=== PATIENT | female | born 1970 | race African-American/Black ===

== ENCOUNTER 2016-10-03 18:05 | Emergency (ER) | payer SELFPAY ==
[2016-10-03 18:13] VITALS: BP 173/97
--- NOTE | 2016-10-03 18:55 | ER Document Report ---
ED Skin Rash/Insect Bite/Abscs - General Chief Complaint: Rash Stated Complaint: POSSIBLE ALLERGIC REACTION Time seen by provider: 18:50 Mode of Arrival: Ambulatory Information source: Patient Notes: 45-year-old female presents to ED for complaint of rash that started yesterday. Much worse today itching to arms and face neck. She described in the arms or weeping. She denies any allergies or any known causes for her rash. She has not been exposed to anything that she knows of. She has no difficulty breathing no difficulty swallowing no difficulty talking. TRAVEL OUTSIDE OF THE [place] IN LAST 30 DAYS: No - HPI Patient complains to provider of: Skin rash/lesion Onset: Yesterday Onset/Duration: Sudden Quality of pain: No pain Severity: None Pain Level: Denies Skin Character: Rash Quality of rash: Itchy Identify cause: No Exacerbated by: Denies Relieved by: Denies Similar symptoms previously: No Recently seen / treated by doctor: No - Related Data Allergies/Adverse Reactions: No Known Allergies Allergy (Verified 10/03/16 18:06) Past Medical History - General Information source: Patient - Social History Smoking Status: Former Smoker Cigarette use (# per day): No Chew tobacco use (# tins/day): No Smoking Education Provided: No Frequency of alcohol use: None Drug Abuse: None 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: [employer] Family History: CAD, Hyperlipidemia, Hypertension, Malignancy Patient has suicidal ideation: No Patient has homicidal ideation: No - Past Medical History Cardiac Medical History: Reports: Hx Hypertension Pulmonary Medical History: Reports: None EENT Medical History: Reports: None Neurological Medical History: Reports: None Endocrine Medical History: Reports: None Renal/ Medical History: Reports: None Malignancy Medical History: Reports: None GI Medical History: Reports: None Musculoskeltal Medical History: Reports None Skin Medical History: Reports None Psychiatric Medical History: Reports: None Traumatic Medical History: Reports: None Infectious Medical History: Reports: None Past Surgical History: Reports: Hx Hysterectomy, Hx Tubal Ligation - Immunizations Immunizations up to date: Yes Hx Diphtheria, Pertussis, Tetanus Vaccination: Yes Review of Systems - Review of Systems Constitutional: No symptoms reported EENT: No symptoms reported Cardiovascular: No symptoms reported Respiratory: No symptoms reported Gastrointestinal: No symptoms reported Genitourinary: No symptoms reported Female Genitourinary: No symptoms reported Musculoskeletal: No symptoms reported Skin: Rash Hematologic/Lymphatic: No symptoms reported Neurological/Psychological: No symptoms reported -: Yes All other systems reviewed and negative Physical Exam - Vital signs Vitals: Temp Pulse Resp BP Pulse Ox 97.8 F 79 18 173/97 H 99 10/03/16 18:11 10/03/16 18:11 10/03/16 18:11 10/03/16 18:11 10/03/16 18:11 Interpretation: Normal - General General appearance: Appears well, Alert - HEENT Head: Normocephalic, Atraumatic Eyes: Normal Pupils: PERRL - Respiratory Respiratory status: No respiratory distress Chest status: Nontender Breath sounds: Normal Chest palpation: Normal - Cardiovascular Rhythm: Regular Heart sounds: Normal auscultation Murmur: No - Abdominal Inspection: Normal Distension: No distension Bowel sounds: Normal Tenderness: Nontender Organomegaly: No organomegaly - Back Back: Normal, Nontender - Extremities General upper extremity: Normal inspection, Nontender, Normal color, Normal ROM , Normal temperature General lower extremity: Normal inspection, Nontender, Normal color, Normal ROM , Normal temperature, Normal weight bearing. No: Tali's sign - Neurological Neuro grossly intact: Yes Cognition: Normal Orientation: AAOx4 [place] Coma Scale Eye Opening: Spontaneous [place] Coma Scale Verbal: Oriented Vanessa Coma Scale Motor: Obeys Commands [place] Coma Scale Total: 15 Speech: Normal Motor strength normal: LUE, RUE, LLE, RLE Sensory: Normal - Psychological Associated symptoms: Normal affect, Normal mood - Skin Skin Temperature: Warm Skin Moisture: Dry Skin Color: Normal Location of irregularity: Face, Extremities Character of irregularity: Maculopapular, Erythematous Irregularity with: Inflammation, Weeping Course - Re-evaluation Re-evalutation: 10/03/16 19:50 Patient treated with solu Medrol Benadryl and Pepcid IV for her severe eczema. She will be discharged home with prescription for prednisone and Pepcid as well as hydroxyzine. Patient will also be given sent home with a prescription for Keflex to take if she develops red streaks or other signs and symptoms of infection. Dr. Reid was consulted and his recommendation was Keflex to use as needed for signs of infection antihistamines and steroids and for patient to continue using her using cream, cool baths, and follow up with a packer inspector. - Vital Signs Vital signs: Temp Pulse Resp BP Pulse Ox 97.8 F 71 18 173/97 H 100 10/03/16 18:11 10/03/16 20:07 10/03/16 18:11 10/03/16 18:11 10/03/16 20:07 Discharge - Discharge Clinical Impression: Seborrheic eczema Condition: Stable Disposition: HOME, SELF-CARE Additional Instructions: Atopic Dematitis (Eczema) You have atopic dermatitis, commonly called eczema. This is a chronic allergic skin condition. It often occurs in families with asthma and hay fever. The skin develops patches of redness, itching and scaling. Eczema often affects the back of the neck, back of the legs, and front of the arms. In children it affects the back of the knees, front of the elbows, and the cheeks. Itching is the main symptom. Eczema can be triggered by dryness, heat, sweating, and detergents or soap. Scratching makes the rash worse. Food or skin allergy can cause eczema. Emotional stress may also be a factor. Symptoms may get better or worse spontaneously. Generally, the treatment consists of: (1) avoid hot-water baths, (2) avoid using soap on your skin, (3) apply a cortisone cream as needed, and (4) use antihistamines for itching. For severe episodes, oral cortisone medication may be required. Call the doctor if you get worse despite treatment, or if signs of infection occur -- such as spreading redness, red streaks, swollen glands, swelling, or fever. If you have any signs and symptoms of infection take the Keflex prescription that has been provided for you. Antihistamines An antihistamine has been prescribed to control your symptoms. Antihistamines are used for many reasons, including itching, watering eyes, runny nose, allergic swelling, hives, and insect stings. Antihistamines may cause drowsiness, especially with the first dose. Do not operate machinery or drive while under the effects of the medication. Other common side effects include dry mouth and eyes. In older persons, antihistamines can occasionally cause urinary retention, constipation, and trouble focusing the eyes. Do not combine the medication with alcohol, or with any other medication without talking to your doctor. Acid-Suppressing Medication You have a prescription for medicine which reduces the stomach's secretion of acid. Examples include Zantac, Tagament, and Pepcid. These drugs are often used to allow healing of ulcers or esophagitis. They may be needed to prevent recurrence of ulcers in some patients, or to prevent damage from acid reflux in the esophagus. Take all medication as prescribed, even after the pain is gone. Regular antacids may be added as needed if you have symptoms while taking this medicine. These medications sometimes are prescribed for allergic reactions because they have anti-histaminic effects and relieve the rash and itching of the reaction. There are usually no side effects from this medication. But, in rare cases and particularly in the elderly, serious problems can occur. Contact your doctor if there is fever, rash, hallucinations, confusion, or unusual bruising. Contact your doctor at once if you develop lightheadedness, black or bloody stool, or bloody vomitus. STEROID MEDICATION: You have been given a medicine of the cortisone/steroid class. This medication is used to control inflammation or allergy. It is usually only given for a short period of time, until the acute process subsides. There are usually no side effects from short-term use of cortisone-like medications. Some persons feel an increased sense of well-being and are not sleepy at bedtime. Long-term use of cortisone medications is best avoided, unless required for a severe condition. If your condition does not remit, or relapses after the course of corticosteroid medication, you should consult your physician. FOLLOW-UP CARE: If you have been referred to a physician for follow-up care, call the physician s office for an appointment as you were instructed or within the next two days. If you experience worsening or a significant change in your symptoms, notify the physician immediately or return to the Emergency Department at any time for re-evaluation. Please complete the patient's satisfaction survey if you get one and return. If you do not receive a survey you can go to [email or web address] website [email or web address] and placed your comments about your very good care. Thank you very much. It was a pleasure be in your medical provider today. Prescriptions: Hydroxyzine Pamoate 100 mg PO Q6HP PRN #20 capsule PRN Reason: Cephalexin Monohydrate [Keflex 500 mg Capsule] 500 mg PO QID #20 capsule Famotidine [Pepcid 40 mg Tablet] 40 mg PO BID #10 tablet Prednisone [Deltasone 20 mg Tablet] 3 tab PO DAILY 5 Days Forms: Elevated Blood Pressure, Return to Work Referrals: AJAY KOENIG DO [ACTIVE STAFF] - Follow up as needed
[2016-10-03] MEDS ORDERED: METHYLPREDNISOLONE INJ 125 MG/2 ML SDV IV ONE (19:13)
[2016-10-03] MEDS ORDERED: FAMOTIDINE INJ/PF 20 MG/2 ML SDV IV ONE (19:13)
[2016-10-03] MEDS ORDERED: DIPHENHYDRAMINE HCL 50 MG/ML VIAL IV ONE (19:13)
== END 2016-10-03 20:09 | disposition home or self-care (01) ==
LOC: ER 18:05
DX: L21.9 Seborrheic dermatitis, unspecified (principal); I10 Essential (primary) hypertension; Z87.891 Personal history of nicotine dependence
CPT/HCPCS: 99282; 96374; 96375; 87070; 87205; J1200; J2930; S0028; 87077; 87186

== ENCOUNTER 2016-10-21 22:26 | Emergency (ER) | payer SELFPAY ==
[2016-10-22] MEDS ORDERED: HYDROXYZINE PAMOATE 25 MG CAPSULE PO ONE (01:52)
[2016-10-22] MEDS ORDERED: HYDROXYZINE PAMOATE 25 MG CAPSULE #4 (ER DISP) PO PRN (01:52)
--- NOTE | 2016-10-22 01:57 | ER Document Report ---
ED General - General Chief Complaint: Rash Stated Complaint: RASH Notes: Patient is a 45 old female presents with complaint of severe eczema. She was seen here on October 03 and given prednisone. She has been applying some Eucerin cream. She is appointment with rolled glass crosscutter on Tuesday. Patient says that the itching is just severe and she continues to scratch the areas and therefore she came to the ER. She says she gets eczema every year around this time here. She says this is sore Ashlie been. No fevers. No spreading redness. No increasing swelling. No signs of infection. No other complaints at this time. TRAVEL OUTSIDE OF THE [place] IN LAST 30 DAYS: No - Related Data Allergies/Adverse Reactions: No Known Allergies Allergy (Verified 10/22/16 00:14) Past Medical History - Social History Smoking Status: Unknown if Ever Smoked Frequency of alcohol use: None Drug Abuse: None Family History: CAD, Hyperlipidemia, Hypertension, Malignancy - Past Medical History Cardiac Medical History: Reports: Hx Hypertension Renal/ Medical History: Denies: Hx Peritoneal Dialysis Past Surgical History: Reports: Hx Hysterectomy, Hx Tubal Ligation - Immunizations Immunizations up to date: Yes Hx Diphtheria, Pertussis, Tetanus Vaccination: Yes Review of Systems - Review of Systems Notes: My Normal Review Basic REVIEW OF SYSTEMS: CONSTITUTIONAL : Denies fever, chills, or sweats. Denies recent illness. GASTROINTESTINAL: Denies abdominal pain. Denies nausea, vomiting, or diarrhea. Denies constipation. Last BM: MUSCULOSKELETAL: Denies neck or back pain or joint pain or swelling. SKIN: Severe eczema ALL OTHER SYSTEMS REVIEWED AND NEGATIVE. Physical Exam - Vital signs Vitals: Temp Pulse Resp BP Pulse Ox 98.6 F 81 13 138/75 H 97 10/22/16 00:15 10/22/16 00:15 10/22/16 00:15 10/22/16 00:15 10/22/16 00:15 - Notes Notes: General Appearance: Well nourished, alert, cooperative, no acute distress, no obvious discomfort. Vitals: reviewed, See vital signs table. Head: no swelling or tenderness to the head Eyes: PERRL, EOMI, Conjuctiva clear Mouth: No decreasd moisture Lungs: No wheezing, No rales, No rhonci, No accessory muscle use, good air exchange bilaterally. Heart: Normal rate, Regular rythm, No murmur, no rub Abdomen: Normal BS, soft, No rigidity, No abdominal tenderness, No guarding, no rebound, no abdominal masses, no organomegaly Extremities: strength 5/5 in all extremities, good pulses in all extremities, no swelling or tenderness in the extremities, no edema. Skin: Patient has red scaly skin over her forearms, Gregory neck, and parts of her face and her hairline. Appearance is consistent with eczema. There is no spreading erythema coming from these areas. His no separate swelling or abnormal discharge. No nothing to suggest secondary infection. Neuro: speech clear, oriented x 3, normal affect, responds appropriately to questions. Course - Vital Signs Vital signs: Temp Pulse Resp BP Pulse Ox 98.1 F 80 16 144/96 H 99 10/22/16 02:23 10/22/16 02:23 10/22/16 02:23 10/22/16 02:23 10/22/16 02:23 - Transfer of Care Notes: 10/22/16 06:18 Patient will be discharged home. She has what appears to be severe eczema. She needs to follow closely with the rolled glass crosscutter. I will place her on triamcinolone cream. I encourage her to continue use the Eucerin cream. Encourage her to use Vistaril for itching. Patient encouraged return to ER if there is any spreading redness, swelling, fevers, or signs of infection. Patient agrees with plan will be discharged home. Dictation of this chart was performed using voice recognition software; therefore, there may be some unintended grammatical errors. Discharge - Discharge Clinical Impression: Eczema Qualifiers: Eczema type: unspecified Qualified Code(s): L30.9 - Dermatitis, unspecified Condition: Good Disposition: HOME, SELF-CARE Additional Instructions: Please apply Eucerin cream 2-3 times a day. please return tot ER immediately if you have spreading redness, fevers, or any signs of infection. Stop using the hydrocortisone cream and start using the triamcinolone cream. Please follow up with the Last Trimmer on Tuesday as scheduled. Prescriptions: Triamcinolone Acetonide 453.6 gm TP ASDIR PRN #1 oint..gm. PRN Reason: Forms: Return to Work
[2016-10-22 02:25] VITALS: BP 144/96
== END 2016-10-22 02:23 | disposition home or self-care (01) ==
LOC: ER 22:26
DX: L30.9 Dermatitis, unspecified (principal); R21 Rash and other nonspecific skin eruption
CPT/HCPCS: 99282; J3490

== ENCOUNTER 2018-05-06 06:47 | Emergency (ER) | payer SELFPAY ==
--- NOTE | 2018-05-06 08:21 | ER Document Report ---
ED Skin Rash/Insect Bite/Abscs - General Chief Complaint: Rash Stated Complaint: POSSIBLE RASH ALL OVER BODY Time Seen by Provider: 05/06/18 07:23 Mode of Arrival: Ambulatory Information source: Patient Notes: Patient is a 47-year-old female who comes emergency room complaining of a rash on her arms. Patient states this started approximately 2 weeks ago off and on area seem to get worse as she itches them. Her primary concern is the itching because the more she itches the worst they get. Patient has 4 areas on the arms one is the left elbow which is the largest and 2 more on the forearm and one on the wrist. She also has 1/5 one starting on the right elbow area. Patient denies any contact with anything unusual. Her does not have any type of rash and he sleeps right next to her. 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 She states that the itching is driving her crazy. She states she takes Benadryl without any relief does absolutely nothing. She denies any changes in detergents no new closed she has no animals so no association of anything she can think of. Patient denies any other medical problems. She also denies smoking. TRAVEL OUTSIDE OF THE [place] IN LAST 30 DAYS: No - HPI Patient complains to provider of: Tender/swollen area, Insect sting, Possible insect bite. No: Tick bite, Spider bite Onset: Other - 2 weeks worse for the past 2 days. Onset/Duration: Sudden, Constant Quality of pain: Other - Itchy Severity: Moderate Pain Level: 3 Skin Character: Erythema, Macules, Papules, Other - Spotty Skin Temperature: Warm Identify cause: No Exacerbated by: Other - Scratching Relieved by: Denies Similar symptoms previously: No Recently seen / treated by doctor: No - Related Data Allergies/Adverse Reactions: No Known Allergies Allergy (Verified 05/06/18 08:05) Past Medical History - General Information source: Patient - Social History Smoking Status: Never Smoker Chew tobacco use (# tins/day): No Frequency of alcohol use: None Drug Abuse: None Family History: Reviewed & Not Pertinent, CAD, Hyperlipidemia, Hypertension, Malignancy Patient has suicidal ideation: No Patient has homicidal ideation: No - Past Medical History Cardiac Medical History: Reports: Hx Hypertension Renal/ Medical History: Denies: Hx Peritoneal Dialysis Past Surgical History: Reports: Hx Hysterectomy, Hx Tubal Ligation - Immunizations Immunizations up to date: Yes Hx Diphtheria, Pertussis, Tetanus Vaccination: Yes Review of Systems - Review of Systems Constitutional: No symptoms reported EENT: No symptoms reported Cardiovascular: No symptoms reported Respiratory: No symptoms reported Gastrointestinal: No symptoms reported Genitourinary: No symptoms reported Female Genitourinary: No symptoms reported Musculoskeletal: No symptoms reported Skin: Lesions Hematologic/Lymphatic: No symptoms reported Neurological/Psychological: No symptoms reported -: Yes All other systems reviewed and negative Physical Exam - Vital signs Vitals: Temp Pulse Resp BP Pulse Ox 98 F 63 16 141/83 H 99 05/06/18 06:58 05/06/18 06:58 05/06/18 06:58 05/06/18 06:58 05/06/18 06:58 Interpretation: Hypertensive - Notes Notes: PHYSICAL EXAMINATION: GENERAL: Patient is well-nourished well-developed obese female comes emergency room with several areas as described on her left arm and right arm. She does appear somewhat uncomfortable from the site of the lesions have been excoriated. HEAD: Atraumatic, normocephalic. EYES: Pupils equal round and reactive to light, extraocular movements intact, conjunctiva are normal. ENT: Nares patent, oropharynx clear without exudates. Moist mucous membranes. NECK: Normal range of motion, supple without lymphadenopathy LUNGS: Breath sounds clear to auscultation bilaterally and equal. No wheezes rales or rhonchi. HEART: Regular rate and rhythm without murmurs ABDOMEN: Soft, nontender, nondistended abdomen. No guarding, no rebound. No masses appreciated. Female : deferred Musculoskeletal: Normal range of motion, no pitting or edema. No cyanosis. Lesions were found mostly on the left arm where there are 4 total lesions the largest is at the elbow that is approximately 10 x 8 cm and makes an area surrounding the elbow itself. I had is moderate warmth there is no fluctuance to it no site of the entrance point with the exception of possible infarct infected follicle. Patient has full range of motion the does not appear to be into the bursa sac of the left elbow. The other 3 are scattered one is down at the wrist and it feels more firm it is a size of a quarter with a central lesion that is like a pustule but without the pus. The small bump that is hard and firm. With the surrounding erythema of about 3-4 cm. There is no depth to it as well this appears to be a an area of expanding cellulitis secondary to this firm nodule. Again the other 3 are on the forearm and under beneath the forearm. There is one located on the right upper arm of the shoulder area. They appear to be insect bites however patient denies this. 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 She then seems to spread by scratching them. There is some mild excoriations around the elbow as well because the one down by the wrist. NEUROLOGICAL: Cranial nerves grossly intact. Normal speech, normal gait. Normal sensory, motor exams PSYCH: Normal mood, normal affect. SKIN: Warm, Dry, normal turgor, no rashes or lesions noted. Course - Re-evaluation Re-evalutation: 05/06/18 08:18 In review of patient's symptoms and after visualization of the areas patient's left elbow has turned into a cellulitis from her excoriation of the area. The other ones on the arm which are more quarter size are moderately erythematous and appeared to be a secondary infection as well. Most likely again from scratching. They may be related to a heat type of the original cause which may lead to the secondary cellulitis. At this time I am going to treat patient for a cellulitis and inflamed areas with some steroids. I will also put patient on hydroxyzine for the itch. I have informed patient to return to ER if she has any concerns or problems. Also suggested to her that if she is scratching the areas during her sleep that she placed some socks on her hands to stop her from using her nails which may spread the problem. This does appear to be a staph type of presentation. There is nothing I can I&D at this time. - Vital Signs Vital signs: Temp Pulse Resp BP Pulse Ox 98 F 60 16 138/72 H 98 05/06/18 08:39 05/06/18 08:39 05/06/18 08:39 05/06/18 08:39 05/06/18 08:39 Discharge - Discharge Clinical Impression: Folliculitis Cellulitis Qualifiers: Site of cellulitis: extremity Site of cellulitis of extremity: upper extremity Laterality: unspecified laterality Qualified Code(s): L03.119 - Cellulitis of unspecified part of limb Disposition: HOME, SELF-CARE Instructions: Cellulitis ([facility]), Folliculitis ([facility]) Additional Instructions: As we discussed part of the problem is that you are scratching these and possibly transferring him to other areas. I also believe that may be getting overheated in the kitchen may be the original cause was going on. She will try to stay as cool as possible while you are cooking. The area on the left elbow as turned into a skin cellulitis therefore we will put you on some antibiotics. I also added Diflucan tablet for you this. He from getting a vaginal yeast infection. We will place you on hydroxyzine as well which will help with the itching. Please be aware that this can make you sleepy so would not recommend driving until you know how the medication affects you. 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 Should you have any concerns or problems if this seems to be spreading more than getting better please return to ER for recheck. Prescriptions: Cephalexin Monohydrate [Keflex 500 mg Capsule] 500 mg PO Q6H 10 Days #40 capsule Fluconazole [Diflucan] 150 mg PO ONCE PRN #1 tablet PRN Reason: Hydroxyzine Pamoate [Vistaril 25 mg Capsule] 25 mg PO DAILY #30 capsule Prednisone [Deltasone 20 mg Tablet] 2 tab PO DAILY 5 Days #10 tablet Forms: Elevated Blood Pressure, Return to Work
[2018-05-06] MEDS ORDERED: HYDROXYZINE PAMOATE 25 MG CAPSULE PO ONE (08:43)
[2018-05-06 09:44] VITALS: BP 138/72
== END 2018-05-06 08:39 | disposition home or self-care (01) ==
LOC: ER 06:47
DX: L73.9 Follicular disorder, unspecified (principal); L03.119 Cellulitis of unspecified part of limb
CPT/HCPCS: 99283

== ENCOUNTER 2018-08-11 06:01 | Emergency (ER) | payer SELFPAY ==
--- NOTE | 2018-08-11 07:07 | RADIOLOGY REPORT (SQ) ---
EXAM DESCRIPTION: XR FOOT 3 OR MORE VIEWS COMPLETED DATE/TME: 08/11/2018 00:00 CLINICAL HISTORY: 47 years, Female, pain COMPARISON: 11/18/2014 NUMBER OF VIEWS: Three TECHNIQUE: Three views of the left foot LIMITATIONS: None. FINDINGS: There is no acute fracture or dislocation. There is no radiopaque foreign body. There is mild diffuse soft tissue swelling. No radiopaque foreign body. IMPRESSION: No acute fracture or dislocation copyright 2010 [employer]- All Rights Reserved
[2018-08-11] MEDS ORDERED: TRAMADOL HCL 50 MG TABLET PO ONE (07:48)
--- NOTE | 2018-08-11 07:51 | ER Document Report ---
ED General - General Chief Complaint: Foot Injury Stated Complaint: LEFT FOOT TOE PAIN Time Seen by Provider: 08/11/18 06:26 TRAVEL OUTSIDE OF THE [place] IN LAST 30 DAYS: No - HPI Patient complains to provider of: Left foot injury Notes: Patient coming in for evaluation of a left foot injury. Patient states walking on stairs and when getting ready for work when she misstepped catching herself in the fall hitting her on her left foot. Patient complains of pain on the dorsum of the foot. Patient denies any other injuries denies ankle pain denies any knee pain. Patient otherwise resting healthy upon my evaluation. - Related Data Allergies/Adverse Reactions: No Known Allergies Allergy (Verified 05/06/18 08:05) Past Medical History - Social History Smoking Status: Former Smoker Family History: Reviewed & Not Pertinent, CAD, Hyperlipidemia, Hypertension, Malignancy Patient has suicidal ideation: No Patient has homicidal ideation: No - Past Medical History Cardiac Medical History: Reports: Hx Hypertension Renal/ Medical History: Denies: Hx Peritoneal Dialysis Past Surgical History: Reports: Hx Hysterectomy, Hx Tubal Ligation - Immunizations Immunizations up to date: Yes Hx Diphtheria, Pertussis, Tetanus Vaccination: Yes Review of Systems - Review of Systems Constitutional: No symptoms reported EENT: No symptoms reported Cardiovascular: No symptoms reported Respiratory: No symptoms reported Gastrointestinal: No symptoms reported Genitourinary: No symptoms reported Female Genitourinary: No symptoms reported Musculoskeletal: Other Skin: No symptoms reported Hematologic/Lymphatic: No symptoms reported Neurological/Psychological: No symptoms reported -: Yes All other systems reviewed and negative Physical Exam - Vital signs Vitals: Temp Pulse Resp BP Pulse Ox 98.7 F 78 16 155/97 H 98 08/11/18 06:06 08/11/18 06:06 08/11/18 06:06 08/11/18 06:06 08/11/18 06:06 Interpretation: Normal - General General appearance: Appears well, Alert - HEENT Head: Normocephalic, Atraumatic Eyes: Normal Pupils: PERRL - Respiratory Respiratory status: No respiratory distress Chest status: Nontender Breath sounds: Normal Chest palpation: Normal - Cardiovascular Rhythm: Regular Heart sounds: Normal auscultation Murmur: No - Abdominal Inspection: Normal Distension: No distension Bowel sounds: Normal Tenderness: Nontender Organomegaly: No organomegaly - Back Back: Normal, Nontender - Extremities General upper extremity: Normal inspection, Nontender, Normal color, Normal ROM, Normal temperature General lower extremity: Normal inspection, Tender - Tenderness to palpation of the dorsum of the foot pulses are intact can feel a dorsalis pedis capillary refill distal to the injury is intact. Patient has no pain pressure on the bottom of the foot on the plantar surface. No deformities, Normal color, Normal ROM, Normal temperature, Normal weight bearing. No: Tali's sign - Neurological Neuro grossly intact: Yes Cognition: Normal Orientation: AAOx4 Vanessa Coma Scale Eye Opening: Spontaneous Vanessa Coma Scale Verbal: Oriented Vanessa Coma Scale Motor: Obeys Commands Vanessa Coma Scale Total: 15 Speech: Normal Motor strength normal: LUE, RUE, LLE, RLE Sensory: Normal - Psychological Associated symptoms: Normal affect, Normal mood - Skin Skin Temperature: Warm Skin Moisture: Dry Skin Color: Normal Course - Re-evaluation Re-evalutation: 08/11/18 14:38 X-rays are negative for acute abnormalities. Will discharge patient home with a postop shoe patient is to have x-rays were performed in 7 days if she is no better. Pain medication was given to the patient. - Vital Signs Vital signs: Temp Pulse Resp BP Pulse Ox 97.7 F 62 20 138/88 H 99 08/11/18 08:01 08/11/18 08:01 08/11/18 08:01 08/11/18 08:01 08/11/18 08:01 Discharge - Discharge Clinical Impression: Foot pain Qualifiers: Laterality: left Qualified Code(s): M79.672 - Pain in left foot Condition: Good Disposition: HOME, SELF-CARE Instructions: Exercises for the Foot Muscles ([facility]) Additional Instructions: Your evaluation today does not show any signs of fracture on your x-ray. I r ecommend using the postop shoe or a nice supportive boot or tissue to help support her foot take Tylenol and Motrin for pain medication Ultram for severe pain device also apply heat and ice to the area return to ER symptoms worsen follow-up with your primary care in 7 days if pain continues with no improvement for repeat x-rays Prescriptions: Tramadol HCl [Ultram 50 mg Tablet] 50 mg PO ASDIR PRN #20 tablet PRN Reason: Forms: Return to Work
[2018-08-11 08:07] VITALS: BP 138/88
== END 2018-08-11 08:07 | disposition home or self-care (01) ==
LOC: ER 06:01
DX: M79.672 Pain in left foot (principal); W10.9XXA Fall (on) (from) unspecified stairs and steps, initial encounter; Y93.89 Activity, other specified; Y92.009 Unspecified place in unspecified non-institutional (private) residence as the place of occurrence of the external cause; I10 Essential (primary) hypertension; Z87.891 Personal history of nicotine dependence
CPT/HCPCS: 99283

== ENCOUNTER 2019-02-05 10:21 | Emergency (ER) | payer SELFPAY ==
--- NOTE | 2019-02-05 11:02 | ER Document Report ---
HPI - HPI Time Seen by Provider: 02/05/19 10:56 Pain Level: 2 Notes: Patient is an otherwise healthy 48-year-old female presenting to the emergency department chief complaint of left knee pain. Patient reports knee pain started yesterday. She denies any injury. She reports history of similar incident approximately 1 year which resolved on its own. Patient reports pain is on the anterior aspect of the entire knee. She denies any recent increase in activity or heavy lifting. - REPRODUCTIVE Reproductive: DENIES: : Past Medical History - General Information source: Patient - Social History Smoking Status: Never Smoker Frequency of alcohol use: None Drug Abuse: None Family History: Reviewed & Not Pertinent, CAD, Hyperlipidemia, Hypertension, Malignancy - Past Medical History Cardiac Medical History: Reports: Hx Hypertension Renal/ Medical History: Denies: Hx Peritoneal Dialysis Past Surgical History: Reports: Hx Hysterectomy, Hx Tubal Ligation - Immunizations Immunizations up to date: Yes Hx Diphtheria, Pertussis, Tetanus Vaccination: Yes Vertical Provider Document - CONSTITUTIONAL Notes: PHYSICAL EXAMINATION: GENERAL: Well-appearing, well-nourished and in no acute distress. HEAD: Atraumatic, normocephalic. EYES: Pupils equal round extraocular movements intact, conjunctiva are normal. ENT: Nares patent NECK: Normal range of motion LUNGS: No respiratory distress Musculoskeletal: Normal range of motion of left knee, no crepitus or deformity on palpation. Mild swelling noted, no erythema or ecchymosis noted. Strong popliteal pulse, strong dorsalis pedis pulse. NEUROLOGICAL: Normal speech, normal gait. PSYCH: Normal mood, normal affect. SKIN: Warm, Dry, normal turgor, no rashes or lesions noted. - INFECTION CONTROL TRAVEL OUTSIDE OF THE [place] IN LAST 30 DAYS: No Course - Re-evaluation Re-evalutation: Knee X-Ray 02/05/19 11:01 IMPRESSION: Mild patellofemoral degenerative joint changes with no acute findings. No acute fracture dislocation of the knee noted. Will start patient on diclofenac gel and prednisone. Patient will follow-up with orthopedics. Patient verbalizes understanding and agreement with this plan. The patient's emergency department workup and current diagnosis were explained to the patient and or family. Follow-up instructions were provided. Medications if prescribed were discussed. Instructions for when to return to the emergency department including specific worrisome symptoms were discussed with the patient and/or family. - Vital Signs Vital signs: Temp Pulse Resp BP Pulse Ox 97.9 F 68 20 153/104 H 98 02/05/19 10:32 02/05/19 10:32 02/05/19 10:32 02/05/19 10:32 02/05/19 10:32 Procedures - Immobilization Left knee Pre-Proc Neuro Vasc Exam: Normal Immobilizer type: Edson wrap Performed by: PCT Post-Proc Neuro Vasc Exam: Normal Alignment checked and good: Yes Discharge - Discharge Clinical Impression: Degenerative changes to left knee Left knee pain Qualifiers: Chronicity: unspecified Qualified Code(s): M25.562 - Pain in left knee Condition: Stable Disposition: HOME, SELF-CARE Additional Instructions: The x-ray of your knee shows degenerative changes consistent with arthritis. Use the diclofenac gel twice daily, take the steroids as directed. Take ibuprofen 600 mg every 6 hours to help with the pain and inflammation. Follow- up with orthopedics if not improving significantly over the next 1 to 2 weeks. Prescriptions: Diclofenac Sodium [Voltaren] 1 gm TP BID #100 gm Prednisone 10 mg PO ASDIR PRN #21 tablet PRN Reason: Forms: Return to Work Referrals: ALVARADO WELCH DO [ACTIVE STAFF] - Follow up as needed
--- NOTE | 2019-02-05 12:12 | RADIOLOGY REPORT (SQ) ---
EXAM DESCRIPTION: KNEE LEFT 4 VIEW COMPLETED DATE/TIME: 02/05/2019 11:54 am REASON FOR STUDY: L knee pain, knee gave out COMPARISON: None. NUMBER OF VIEWS: Four views. TECHNIQUE: AP, lateral, and both oblique radiographic images acquired of the left knee. LIMITATIONS: None. FINDINGS: MINERALIZATION: Normal. BONES: No acute fracture or dislocation. No worrisome bone lesions. JOINT: There is no significant joint effusion. There are tiny posterior patellar spurs. SOFT TISSUES: No soft tissue swelling. No radio-opaque foreign body. OTHER: No other significant finding. IMPRESSION: Mild patellofemoral degenerative joint changes with no acute findings. TECHNICAL DOCUMENTATION: JOB ID: [id number] [employer]- All Rights Reserved Reading location - IP/workstation name: [email or web address]
[2019-02-05 12:24] VITALS: BP 168/103
== END 2019-02-05 12:32 | disposition home or self-care (01) ==
LOC: ER 10:21
DX: M17.12 Unilateral primary osteoarthritis, left knee (principal); M25.562 Pain in left knee; I10 Essential (primary) hypertension; Z90.710 Acquired absence of both cervix and uterus
CPT/HCPCS: 99283

== ENCOUNTER 2019-08-29 15:41 | Emergency (ER) | payer SELFPAY ==
--- NOTE | 2019-08-29 17:26 | ER Document Report ---
ED Medical Screen (RME) - General Chief Complaint: Headache Stated Complaint: HEADACHE Time Seen by Provider: 08/29/19 17:14 Mode of Arrival: Ambulatory Information source: Patient Notes: 48-year-old female presented to ED for new onset headache starting about 2 weeks ago. She states that at work her blood pressure has been all over the place and many days they have not let her work because of her blood pressure being so high. She states she has no history of elevated blood pressure no history of headaches but she does not go to a doctor and has not been to a doctor for many years. She states she does smoke half pack a day does not drink or use any drugs. I have greeted and performed a rapid initial assessment of this patient. A comprehensive ED assessment and evaluation of the patient, analysis of test results and completion of medical decision making process will be conducted by an additional ED providers. TRAVEL OUTSIDE OF THE [place] IN LAST 30 DAYS: No - Related Data Allergies/Adverse Reactions: No Known Allergies Allergy (Verified 08/29/19 17:14) Past Medical History - Social History Chew tobacco use (# tins/day): No Frequency of alcohol use: None Drug Abuse: None - Past Medical History Cardiac Medical History: Reports: Hx Hypertension Renal/ Medical History: Denies: Hx Peritoneal Dialysis Past Surgical History: Reports: Hx Hysterectomy, Hx Tubal Ligation - Immunizations Immunizations up to date: Yes Hx Diphtheria, Pertussis, Tetanus Vaccination: Yes Physical Exam - Vital signs Vitals: Temp Pulse Resp BP Pulse Ox 97.8 F 64 16 134/73 H 99 08/29/19 16:16 08/29/19 16:16 08/29/19 16:16 08/29/19 16:16 08/29/19 16:16 Course - Vital Signs Vital signs: Temp Pulse Resp BP Pulse Ox 97.8 F 64 16 125/67 99 08/29/19 16:16 08/29/19 16:16 08/29/19 16:16 08/29/19 17:18 08/29/19 16:16
[2019-08-29 17:54] LABS: ABSOLUTE BASOPHILS # (AUTO) 0.1 10^3/uL (0.0-0.2); ABSOLUTE EOSINOPHILS # (AUTO) 0.3 10^3/uL (0.0-0.6); ABSOLUTE LYMPHOCYTES (AUTO) 1.8 10^3/uL (0.5-4.7); ABSOLUTE MONOCYTES (AUTO) 0.7 10^3/uL (0.1-1.4); ABSOLUTE NEUT (AUTO) 3.2 10^3/uL (1.7-8.2); HEMATOCRIT 44.3 % (36.0-47.0); HEMOGLOBIN 15.5 g/dL (12.0-15.5); LYMPHOCYTES % (AUTO) 29.8 % (13-45); MEAN CORPUSCULAR HGB CONC 34.9 g/dL (32.0-36.0); MEAN CORPUSCULAR VOLUME 92 fl (80-97); MONOCYTES % (AUTO) 11.1 % (3-13); PLATELET COUNT 194 10^3/uL (150-450); RED BLOOD COUNT 4.83 10^6/uL (3.72-5.28); SEGMENTED NEUTROPHILS % (AUTO) 53.1 % (42-78); TOTAL CELLS COUNTED % (AUTO) 100 %
[2019-08-29 18:13] LABS: ALBUMIN 4.1 g/dL (3.5-5.0); ALKALINE PHOSPHATASE 79 U/L (38-126); ANION GAP 9 (5-19); ASPARTATE AMINO TRANSFERASE 36 U/L (14-36); BILIRUBIN,DIRECT 0.4 mg/dL (0.0-0.4); BILIRUBIN,TOTAL 0.5 mg/dL (0.2-1.3); BLOOD UREA NITROGEN 12 mg/dL (7-20); CARBON DIOXIDE 25 mmol/L (22-30); CHLORIDE 106 mmol/L (98-107); POTASSIUM 3.7 mmol/L (3.6-5.0); TOTAL PROTEIN 7.9 g/dL (6.3-8.2)
[2019-08-29 18:21] LABS: GLUCOSE 53 mg/dL (75-110)
--- NOTE | 2019-08-29 18:24 | RADIOLOGY REPORT (SQ) ---
EXAM DESCRIPTION: CT HEAD WITHOUT COMPLETED DATE/TIME: 08/29/2019 6:09 pm REASON FOR STUDY: New onset headaches COMPARISON: None. TECHNIQUE: Axial images acquired through the brain without intravenous contrast. Images reviewed wi th bone, brain and subdural windows. Additional sagittal and coronal reconstructions were generated. Images stored on PACS. All CT scanners at this facility use dose modulation, iterative reconstruction, and/or weight based d osing when appropriate to reduce radiation dose to as low as reasonably achievable (ALARA). [facility]: Dose Right [facility]: CareDose [facility]: Dose Right [facility]: Teradose 4D [facility]: [employer]Crowd RADIATION DOSE: CT Rad equipment meets quality standard of care and radiation dose reduction techniq ues were employed. CTDIvol: 53.2 mGy. DLP: 1283 mGy-cm. mGy. LIMITATIONS: None. FINDINGS: VENTRICLES: Normal size and contour. CEREBRUM: No masses. No hemorrhage. No midline shift. No evidence for acute infarction. Normal gra y/white matter differentiation. No areas of low density in the white matter. CEREBELLUM: No masses. No hemorrhage. No alteration of density. No evidence for acute infarction. EXTRAAXIAL SPACES: No fluid collections. No masses. ORBITS AND GLOBE: No intra- or extraconal masses. Normal contour of globe without masses. CALVARIUM: No fracture. PARANASAL SINUSES: No fluid levels. Mild maxillary polypoid mucosal thickening. SOFT TISSUES: No mass or hematoma. OTHER: No other significant finding. IMPRESSION: No acute intracranial abnormality. EVIDENCE OF ACUTE STROKE: NO. COMMENT: Quality ID # [id number]: Final reports with documentation of one or more dose reduction techniques (e.g., Automated exposure control, adjustment of the mA and/or kV according to patient size, use of iterative reconstruction technique) TECHNICAL DOCUMENTATION: JOB ID: [id number] 2010 [employer]- All Rights Reserved Reading location - IP/workstation name: [email or web address]
[2019-08-29 19:56] LABS: APPEARANCE,URINE CLEAR; BILIRUBIN,URINE NEGATIVE (NEGATIVE); COLOR,URINE YELLOW; GLUCOSE, URINE NEGATIVE (NEGATIVE); KETONES,URINE TRACE mg/dL (NEGATIVE); PROTEIN,URINE NEGATIVE (NEGATIVE); URINE SPECIFIC GRAVITY 1.033
[2019-08-29 20:23] VITALS: BP 135/80
--- NOTE | 2019-08-29 20:30 | ER Document Report ---
ED General - General Chief Complaint: Headache Stated Complaint: HEADACHE Time Seen by Provider: 08/29/19 17:14 Mode of Arrival: Ambulatory Information source: Patient Notes: Patient is a 48-year-old female presenting to the emergency department chief complaint of headache. Patient states been ongoing for about a week to a week and a half intermittently. Patient states she personally does not have a diagnosis of hypertension but states multiple family members do. Patient denies travel history trauma history sick contacts or any bad food exposure. Patient does report positive tobacco abuse. TRAVEL OUTSIDE OF THE [place] IN LAST 30 DAYS: No - HPI Onset: Last week Onset/Duration: Gradual, Intermittent Quality of pain: Achy, Pressure Severity: Mild Pain Level: 2 Associated symptoms: None Exacerbated by: Denies Relieved by: Denies Similar symptoms previously: No Recently seen / treated by doctor: No - Related Data Allergies/Adverse Reactions: No Known Allergies Allergy (Verified 08/29/19 17:14) Past Medical History - General Information source: Patient - Social History Smoking Status: Current Every Day Smoker Chew tobacco use (# tins/day): No Smoking Education Provided: Yes Frequency of alcohol use: None Drug Abuse: None Lives with: Alone Family History: Reviewed & Not Pertinent, CAD, Hyperlipidemia, Hypertension, Malignancy Patient has suicidal ideation: No Patient has homicidal ideation: No - Past Medical History Cardiac Medical History: Reports: Hx Hypertension Renal/ Medical History: Denies: Hx Peritoneal Dialysis Past Surgical History: Reports: Hx Hysterectomy, Hx Tubal Ligation - Immunizations Immunizations up to date: Yes Hx Diphtheria, Pertussis, Tetanus Vaccination: Yes Review of Systems - Review of Systems Notes: REVIEW OF SYSTEMS: CONSTITUTIONAL : Denies fever, chills, or sweats. Denies recent illness. EENT: Denies eye, ear, throat, or mouth pain or symptoms. Denies nasal or sinus congestion. CARDIOVASCULAR: Denies chest pain. RESPIRATORY: Denies cough, cold, or chest congestion. Denies shortness of breath, difficulty breathing, or wheezing. GASTROINTESTINAL: Denies abdominal pain. Denies nausea, vomiting, or diarrhea. Denies constipation. GENITOURINARY: Denies difficulty urinating, painful urination, burning, frequency, or blood in urine. MUSCULOSKELETAL: Denies neck or back pain or joint pain or swelling. SKIN: Denies rash or skin lesions. HEMATOLOGIC : Denies easy bruising or bleeding. NEUROLOGICAL: Denies altered mental status or loss of consciousness. Denies weakness or paralysis or loss of use of either side. Denies problems with gait or speech. Denies sensory or motor loss. However patient does complain of headache PSYCHIATRIC: Denies suicidal or homicidal ideations 10 Systems are negative unless otherwise specified above Physical Exam - Vital signs Vitals: Temp Pulse Resp BP Pulse Ox 97.8 F 64 16 134/73 H 99 08/29/19 16:16 08/29/19 16:16 08/29/19 16:16 08/29/19 16:16 08/29/19 16:16 - Notes Notes: PHYSICAL EXAMINATION: GENERAL: Well-appearing, well-nourished and in no acute distress. HEAD: Atraumatic, normocephalic. EYES: Pupils equal round and reactive to light, extraocular movements intact, sclera anicteric, conjunctiva are normal. ENT: nares patent, oropharynx clear without exudates. Moist mucous membranes. NECK: Normal range of motion, supple without lymphadenopathy, no appreciable JVD LUNGS: Lungs clear to auscultation bilaterally and equal. No wheezes rales or rhonchi. HEART: Regular rate and rhythm without murmurs ABDOMEN: Soft, nontender, normal bowel sounds. No guarding, no rebound. No masses appreciated. EXTREMITIES: Active full range of motion, no pitting or edema. No cyanosis. 2+ pulses x4 NEUROLOGICAL: At time of evaluation the patient is alert and oriented x3, Glascow coma scale of 15, cranial nerves II through XII are grossly intact, sensations intact, motor is intact, there are no signs of nystagmus, there is no pronator drift, there is no facial asymmetry, tongue protrusion is midline, reflexes are equal and bilateral, patient ambulates without ataxia, patient answers all questions appropriately follows commands appropriately. SKIN: Warm, Dry, and intact. Normal turgor, no rashes or lesions noted. Course - Re-evaluation Re-evalutation: 08/29/19 21:00 I discussed with the patient the negative laboratory and radiologic results. Patient states she feels much improved and will follow up with her primary care provider. I did discuss with her the need to stop smoking. We also discussed her borderline hypertension and methods that she can used to alleviate some of the elevated blood pressure. Patient is stable at time of discharge - Vital Signs Vital signs: Temp Pulse Resp BP Pulse Ox 97.5 F 57 L 20 135/80 H 98 08/29/19 20:10 08/29/19 20:10 08/29/19 20:10 08/29/19 20:10 08/29/19 20:10 - Laboratory Result Diagrams: 08/29/19 17:38 08/29/19 17:38 Laboratory results interpreted by me: 08/29/19 08/29/19 17:38 19:19 Glucose 53 L Urine Ketones TRACE H Urine Urobilinogen 4.0 H - Diagnostic Test Radiology reviewed: Reports reviewed Discharge - Discharge Clinical Impression: Elevated blood pressure reading Headache Qualifiers: Headache type: unspecified Headache chronicity pattern: acute headache Intractability: not intractable Qualified Code(s): R51 - Headache Condition: Stable Disposition: HOME, SELF-CARE Instructions: Headache ([facility]) Additional Instructions: HIGH BLOOD PRESSURE, NOT TREAT: When your blood pressure was taken today it was elevated. Today's reading was . We do not think you need to have your blood pressure treated today. Sometimes, stress or illness causes a temporary elevation of your blood pressure. We suggest that you get your blood pressure measured again during the next few days to see if this elevated blood pressure is more than a temporary abnormality. If your blood pressure is greater than 150/90 on each occasion, you must have treatment. Some simple things you can do to help are: If you have blood pressure medicine but aren't using it regularly, start taking it again. Get some aerobic exercise for at least 20 minutes on a daily basis. (See your doctor before beginning a new exercise program.) Eat a low-fat diet. Lose excess weight. Avoid salty foods and avoid adding salt to any of the foods you eat. Avoid diet pills, decongestants, "energizing" herbs, and other medicines that elevate blood pressure. If left untreated, hypertension greatly enhances your risk for developing heart disease and strokes. Please don't ignore this problem. HIGH BLOOD PRESSURE REQUIRING TREATMENT: Your blood pressure is high. This is called "hypertension." Today's reading was __136/80 (normal is less than 140/90). Your history and exam suggest that this is not a temporary problem. You need treatment of your blood pressure. If left untreated, high blood pressure greatly increases your risk of heart attack and stroke. Please don't ignore this problem. If you have blood pressure medicine but aren't using it regularly, start taking it again. Some simple things you can do to help are: Get some aerobic exercise for at least 20 minutes on a daily basis. (See your doctor before beginning any new exercise program.) Eat a low-fat diet. Lose excess weight. Avoid salty foods and avoid adding salt to any of the foods you eat. Avoid diet pills, decongestants, "energizing" herbs, and other medicines that elevate blood pressure. There are many different medicines that treat blood pressure. If your medication causes unpleasant side effects, call your doctor. There are others you can try. Treating hypertension is a life-long investment in your health. FOLLOW-UP CARE: If you have been referred to a physician for follow-up care, call the [facility] for an appointment as you were instructed or within the next two days. If you experience worsening or a significant change in your symptoms, notify the physician immediately or return to the Emergency Department at any time for re-evaluation. Forms: Return to Work
== END 2019-08-29 20:43 | disposition home or self-care (01) ==
LOC: ER 15:41
DX: R51 Headache (principal); I10 Essential (primary) hypertension; F17.210 Nicotine dependence, cigarettes, uncomplicated; Z90.710 Acquired absence of both cervix and uterus
CPT/HCPCS: 36415; 70450; 80053; 81001; 85025; 99284

== ENCOUNTER 2019-09-24 22:42 | Emergency (ER) | payer SELFPAY ==
[2019-09-24] MEDS ORDERED: ONDANSETRON 4 MG TAB.RAPDIS PO ONE (23:32)
[2019-09-24] MEDS ORDERED: OXYCODONE-ACETAMINOPHEN 5-325 MG TABLET PO ONE (23:32)
--- NOTE | 2019-09-24 23:34 | ER Document Report ---
HPI - HPI Time Seen by Provider: 09/24/19 23:27 Pain Level: 5 Context: Patient is a 48-year-old female that comes to the emergency department for chief complaint of right shoulder pain. 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 She states that over the past couple of days she has had increasing pain to where she cannot sleep, she has lost range of motion and cannot lift her right arm over her head. She denies numbness, impact injury, or weakness. She denies headache, neck pain, fever, or any other complaints. She denies any daily medications, denies orthopedic surgeries. She denies any other complaints including chest pain, shortness of breath, cough. She is right-handed. - REPRODUCTIVE Reproductive: DENIES: : Past Medical History - General Information source: Patient - Social History Smoking Status: Current Every Day Smoker Frequency of alcohol use: None Drug Abuse: None Lives with: Family Family History: Reviewed & Not Pertinent, CAD, Hyperlipidemia, Hypertension, Malignancy Patient has suicidal ideation: No Patient has homicidal ideation: No - Past Medical History Cardiac Medical History: Reports: Hx Hypertension Renal/ Medical History: Denies: Hx Peritoneal Dialysis Past Surgical History: Reports: Hx Hysterectomy, Hx Tubal Ligation - Immunizations Immunizations up to date: Yes Hx Diphtheria, Pertussis, Tetanus Vaccination: Yes Vertical Provider Document - CONSTITUTIONAL General Appearance: WD/WN. negative: No Apparent Distress - Patient occasionally seems to have twinges of sharp pain especially with movement, she is favoring her right shoulder - INFECTION CONTROL TRAVEL OUTSIDE OF THE [place] IN LAST 30 DAYS: No - HEENT HEENT: Atraumatic, Normocephalic - NECK Neck: Normal Inspection - RESPIRATORY Respiratory: Breath Sounds Normal, No Respiratory Distress - CARDIOVASCULAR Cardiovascular: Regular Rate, Regular Rhythm - GI/ABDOMEN Gastrointestinal: Abdomen Soft, Abdomen Non-Tender - BACK Back: Normal Inspection - Non-tender back generally on palpation. See extremity exam. No midline tenderness, no saddle anesthesia, no signs of trauma. Normal upper and lower extremity range of motion, normal strength, normal distal neurovascular exam. - MUSCULOSKELETAL/EXTREMETIES Musculoskeletal/Extremeties: MAAYAN, FROM, Tender - Patient is notably tender over the right supraspinatus muscle, slightly over the right deltoid, and also over the right lateral trapezius muscle. Patient has pain and is unable to raise her right arm above her head. 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 Normal neck exam. - NEURO Level of Consciousness: Awake, Alert, Appropriate Motor/Sensory: No Motor Deficit, No Sensory Deficit - DERM Integumentary: Warm, Dry, No Rash Course - Re-evaluation Re-evalutation: Patient is obviously uncomfortable, has a very tight muscular tenderness and spasm in the right trapezius, supraspinatus, rotator cuff. X-ray showing arthritis but otherwise unremarkable. Patient will be given work release, discussed options, decision was made to give muscle relaxers with Valium but I discussed the care and use of this, discussed anti-inflammatory use, discussed follow-up and return precautions. Patient has no other symptoms, I do believe this is musculoskeletal only. Patient states understanding and agreement with plan. Stable and well-appearing at time of discharge. - Vital Signs Vital signs: Temp Pulse Resp BP Pulse Ox 97.9 F 74 14 187/97 H 96 09/24/19 22:47 09/24/19 22:47 09/24/19 22:47 09/24/19 22:47 09/24/19 22:47 Discharge - Discharge Clinical Impression: Upper back pain, Muscle spasm Right shoulder pain Qualifiers: Chronicity: acute Qualified Code(s): M25.511 - Pain in right shoulder Condition: Stable Disposition: HOME, SELF-CARE Additional Instructions: Your x-ray shows some arthritis in the joint between your collarbone and shoulder but no other concerning findings. Your exam is very suggestive of a rotator cuff injury. I recommend heat to your upper back and shoulder, gentle stretches, massage, use the sling for comfort but remember to take this out multiple times a day and perform range of motion to avoid a frozen shoulder. Take the muscle relaxer and anti-inflammatory as prescribed, using the precautions. If symptoms continue and will not go away please follow-up with the orthopedic surgeon, see referral, call for your follow-up appointment. Return for any concerning symptoms including severe worsening pain, swelling, numbness, fever, or any other concerning symptoms. Prescriptions: Naproxen 500 mg PO BID PRN #20 tablet PRN Reason: Diazepam [Valium 5 mg Tablet] 1 - 2 tab PO TID PRN #15 tablet PRN Reason: Forms: Elevated Blood Pressure, Return to Work Referrals: SHARA SAUCEDO MD [ACTIVE STAFF] - Follow up in 1 week
--- NOTE | 2019-09-25 00:04 | RADIOLOGY REPORT (SQ) ---
EXAM DESCRIPTION: X-RAY SHOULDER RIGHT 2 OR MORE VIEWS CLINICAL HISTORY: 48 years Female pain for three days after working COMPARISON: None TECHNIQUE: AP internal and external rotation and Y scapular views were obtained at 2357 hours on 09/24/2019. FINDINGS/IMPRESSION: No fracture, subluxation or soft tissue abnormalities are seen. Degenerative changes of the acromioclavicular joint.
[2019-09-25 00:56] VITALS: BP 139/74
== END 2019-09-25 00:55 | disposition home or self-care (01) ==
LOC: ER 22:42
DX: M25.511 Pain in right shoulder (principal); M54.6 Pain in thoracic spine; M62.838 Other muscle spasm; F17.200 Nicotine dependence, unspecified, uncomplicated; I10 Essential (primary) hypertension; Z90.710 Acquired absence of both cervix and uterus
CPT/HCPCS: 99283; 73030; S0119

== ENCOUNTER 2019-11-12 09:40 | Emergency (ER) | payer BC ==
[2019-11-12 09:50] VITALS: BP 184/97
--- NOTE | 2019-11-12 10:24 | ER Document Report ---
HPI - HPI Patient complains to provider of: right shoulder pain Time Seen by Provider: 11/12/19 10:12 Onset: Other - September 25, 2019 Onset/Duration: Sudden, Persistent Quality of pain: Stabbing, Throbbing Pain Level: 5 Context: 48-year-old female with no previous medical problems presents to the emergency room with persistent right shoulder pain. Patient states she was seen here September 24 for her shoulder pain which she felt was related to a new job duties at work. Patient was seen and evaluated emergency room was discharged home on naproxen and Valium. States the Valium helps with naproxen does not do much for the pain. States she did not initially file it as Worker's Comp. but when she went to file they told her it was too late to file a claim. Has attempted to see her primary care but states they are close secondary to the COVID-19 pain is worse with movement, worse when she tries to lay down and sleep at night. Describes it as a throbbing sharp pain. Patient is right-handed. No other new injury or trauma. No previous history of shoulder issues. Associated Symptoms: None Exacerbated by: Movement Relieved by: Other - Nothing Similar symptoms previously: No Recently seen / treated by doctor: No - ROS ROS below otherwise negative: Yes - CONSTITUTIONAL Constitutional: DENIES: Fever, Chills - EENT EENT: DENIES: Sore Throat - NEURO Neurology: DENIES: Weakness - CARDIOVASCULAR Cardiovascular: DENIES: Chest pain - RESPIRATORY Respiratory: DENIES: Trouble Breathing, Coughing - GASTROINTESTINAL Gastrointestinal: DENIES: Abdominal Pain, Nausea - REPRODUCTIVE Reproductive: DENIES: : - MUSCULOSKELETAL Musculoskeletal: REPORTS: Extremity pain - R shoulder - DERM Skin Color: Normal Skin Problems: None Past Medical History - General Information source: Patient - Social History Smoking Status: Current Every Day Smoker Frequency of alcohol use: None Drug Abuse: None Family History: Reviewed & Not Pertinent, CAD, Hyperlipidemia, Hypertension, Malignancy Patient has homicidal ideation: No - Past Medical History Cardiac Medical History: Reports: Hx Hypertension Renal/ Medical History: Denies: Hx Peritoneal Dialysis Past Surgical History: Reports: Hx Section, Hx Hysterectomy, Hx Tubal Ligation - Immunizations Immunizations up to date: Yes Hx Diphtheria, Pertussis, Tetanus Vaccination: Yes Vertical Provider Document - CONSTITUTIONAL Agree With Documented VS: Yes Exam Limitations: No Limitations General Appearance: WD/WN, Mild Distress - INFECTION CONTROL TRAVEL OUTSIDE OF THE [place] IN LAST 30 DAYS: No - HEENT HEENT: Atraumatic, Normocephalic - NECK Neck: Normal Inspection, Supple - RESPIRATORY Respiratory: Breath Sounds Normal, No Respiratory Distress, Chest Non-Tender. negative: Rales, Rhonchi, Wheezing - CARDIOVASCULAR Cardiovascular: Regular Rate, Regular Rhythm. negative: No Murmur - BACK Back: Normal Inspection. negative: CVA Tenderness-Right, CVA Tenderness-Left - MUSCULOSKELETAL/EXTREMETIES Musculoskeletal/Extremeties: Tender - Tenderness on palpation to the right AC joint. No pain noted with abduction and adduction of the right shoulder. Positive impingement. No swelling, no obvious deformity noted. - NEURO Level of Consciousness: Awake, Alert, Appropriate Motor/Sensory: No Motor Deficit, No Sensory Deficit - DERM Integumentary: Warm, Dry Course - Re-evaluation Re-evalutation: 11/12/19 10:43 Reviewed X-ray results with patient. Counseled on need to follow-up outpatient with an orthopedist. On-call provider was provided to the patient. Tylenol and/or Motrin as needed for pain. Lidocaine patches as prescribed, Flexeril as prescribed. Given strict return to the emergency room guidelines. Return for any new or worsening symptoms. All questions were answered. Patient verbalizes understanding and agrees with plan of care. 11/12/19 11:02 - Vital Signs Vital signs: Temp Pulse Resp BP Pulse Ox 98.6 F 64 18 184/97 H 99 11/12/19 09:48 11/12/19 09:48 11/12/19 09:48 11/12/19 09:48 11/12/19 09:48 - Diagnostic Test Radiology reviewed: Reports reviewed Discharge - Discharge Clinical Impression: Chronic right shoulder pain Condition: Stable Disposition: HOME, SELF-CARE Instructions: Exercise Program for the Shoulder ([facility]), Shoulder Injury ([facility]) Additional Instructions: Can use heat 20 minutes 3 times a day. Topical lidocaine patches as prescribed. Outpatient follow-up with orthopedics as discussed. Return for any new or worsening symptoms. Prescriptions: Cyclobenzaprine HCl [Flexeril 10 mg Tablet] 10 mg PO TIDP PRN #15 tab PRN Reason: For Pain Lidocaine 1 each TP DAILY #5 adh..patch Forms: Return to Work Referrals: JOSEPHINE WYNNE PA-C [Primary Care Provider] - Follow up as needed ALVARADO WELCH DO [ACTIVE STAFF] - Follow up in 3-5 days (For an outpatient follow-up appointment.)
--- NOTE | 2019-11-12 10:38 | RADIOLOGY REPORT (SQ) ---
EXAM DESCRIPTION: SHOULDER RIGHT 2 OR MORE VIEWS IMAGES COMPLETED DATE/TIME: 11/12/2019 10:22 am REASON FOR STUDY: pain COMPARISON: Re- 30 NUMBER OF VIEWS: Three views. TECHNIQUE: Internal rotation, external rotation, and Y view images acquired of the right shoulder. LIMITATIONS: None. FINDINGS: MINERALIZATION: Normal. BONES: No acute fracture. No worrisome bone lesions. No significant osteophytes. GLENOHUMERAL JOINT: No significant findings. ACROMIOCLAVICULAR JOINT: No large osteophytes. SOFT TISSUES: No calcifications. VISUALIZED RIBS, SPINE, AND LUNG: No other significant finding. OTHER: No other significant finding. IMPRESSION: NEGATIVE STUDY OF THE RIGHT SHOULDER. NO EXPLANATION FOR PAIN. TECHNICAL DOCUMENTATION: JOB ID: [id number] 2010 [employer]- All Rights Reserved Reading location - IP/workstation name: [email or web address]
== END 2019-11-12 10:52 | disposition home or self-care (01) ==
LOC: ER 09:40
DX: M25.511 Pain in right shoulder (principal); F17.200 Nicotine dependence, unspecified, uncomplicated; I10 Essential (primary) hypertension; G89.29 Other chronic pain
CPT/HCPCS: 99283

== ENCOUNTER 2020-03-07 10:49 | Emergency (ER) | payer SELFPAY ==
--- NOTE | 2020-03-07 12:20 | ER Document Report ---
ED Medical Screen (RME) - General Chief Complaint: Chest Pain Stated Complaint: CHEST PAIN Time Seen by Provider: 03/07/20 12:18 Primary Care Provider: JOSEPHINE WYNNE PA-C [Primary Care Provider] - Follow up as needed Mode of Arrival: Ambulatory Information source: Patient Notes: 49-year-old female presents to ED for complaint of chest pain to the left side of her chest. 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 She is alert oriented respirations regular nonlabored speaking in full sentences. She states she does not have any medical or surgical history. She states she lives with her family she does smoke 1/2 pack a day. She does not drink or use any illicit drugs. I have greeted and performed a rapid initial assessment of this patient. A comprehensive ED assessment and evaluation of the patient, analysis of test results and completion of medical decision making process will be conducted by an additional ED providers. TRAVEL OUTSIDE OF THE [place] IN LAST 30 DAYS: No - Related Data Allergies/Adverse Reactions: No Known Allergies Allergy (Verified 09/24/19 22:49) Past Medical History - Social History Frequency of alcohol use: None Drug Abuse: None - Past Medical History Cardiac Medical History: Reports: Hx Hypertension Renal/ Medical History: Denies: Hx Peritoneal Dialysis Past Surgical History: Reports: Hx Section, Hx Hysterectomy, Hx Tubal Ligation - Immunizations Immunizations up to date: Yes Hx Diphtheria, Pertussis, Tetanus Vaccination: Yes Physical Exam - Vital signs Vitals: Temp Pulse Resp BP Pulse Ox 98.6 F 67 16 136/76 H 99 03/07/20 11:41 03/07/20 11:41 03/07/20 11:41 03/07/20 11:41 03/07/20 11:41 Course - Vital Signs Vital signs: Temp Pulse Resp BP Pulse Ox 98.6 F 67 16 136/76 H 99 03/07/20 11:41 03/07/20 11:41 03/07/20 11:41 03/07/20 11:41 03/07/20 11:41 Doctor's Discharge - Discharge Referrals: JOSEPHINE WYNNE PA-C [Primary Care Provider] - Follow up as needed
--- NOTE | 2020-03-07 12:35 | RADIOLOGY REPORT (SQ) ---
EXAM DESCRIPTION: CHEST 2 VIEWS IMAGES COMPLETED DATE/TIME: 03/07/2020 12:28 pm REASON FOR STUDY: chest pain COMPARISON: None. EXAM PARAMETERS: NUMBER OF VIEWS: two views TECHNIQUE: Digital Frontal and Lateral radiographic views of the chest acquired. RADIATION DOSE: NA LIMITATIONS: none FINDINGS: LUNGS AND PLEURA: No opacities, masses or pneumothorax. No pleural effusion. MEDIASTINUM AND HILAR STRUCTURES: No masses or contour abnormalities. HEART AND VASCULAR STRUCTURES: Heart normal size. No evidence for failure. BONES: No acute findings. HARDWARE: None in the chest. OTHER: Small hiatal hernia is suggested. IMPRESSION: 1. NO ACUTE RADIOGRAPHIC FINDING IN THE CHEST. TECHNICAL DOCUMENTATION: JOB ID: [id number] 2010 [employer]- All Rights Reserved Reading location - IP/workstation name: [email or web address]
[2020-03-07 13:03] LABS: ABSOLUTE BASOPHILS # (AUTO) 0.1 10^3/uL (0.0-0.2); ABSOLUTE EOSINOPHILS # (AUTO) 0.3 10^3/uL (0.0-0.6); ABSOLUTE LYMPHOCYTES (AUTO) 2.4 10^3/uL (0.5-4.7); ABSOLUTE MONOCYTES (AUTO) 0.4 10^3/uL (0.1-1.4); BASOPHILS % (AUTO) 0.7 % (0-2); EOSINOPHILS % (AUTO) 3.7 % (0-6); HEMATOCRIT 42.3 % (36.0-47.0); HEMOGLOBIN 14.5 g/dL (12.0-15.5); MEAN CORPUSCULAR HEMOGLOBIN 31.7 pg (27.0-33.4); MEAN CORPUSCULAR HGB CONC 34.2 g/dL (32.0-36.0); MEAN CORPUSCULAR VOLUME 93 fl (80-97); MONOCYTES % (AUTO) 4.7 % (3-13); PLATELET COUNT 176 10^3/uL (150-450); RED BLOOD COUNT 4.57 10^6/uL (3.72-5.28); RED CELL DISTRIBUTION WIDTH 13.6 % (11.5-14.0); SEGMENTED NEUTROPHILS % (AUTO) 60.9 % (42-78); TOTAL CELLS COUNTED % (AUTO) 100 %; WHITE BLOOD COUNT 8.1 10^3/uL (4.0-10.5)
[2020-03-07 13:21] LABS: ALBUMIN 3.6 g/dL (3.5-5.0); ALKALINE PHOSPHATASE 72 U/L (38-126); ASPARTATE AMINO TRANSFERASE 26 U/L (14-36); BILIRUBIN,DIRECT 0.3 mg/dL (0.0-0.4); BILIRUBIN,TOTAL 0.4 mg/dL (0.2-1.3); BLOOD UREA NITROGEN 11 mg/dL (7-20); CALCIUM 8.6 mg/dL (8.4-10.2); CARBON DIOXIDE 27 mmol/L (22-30); CHLORIDE 107 mmol/L (98-107); GLUCOSE 114 mg/dL (75-110); POTASSIUM 4.1 mmol/L (3.6-5.0); TOTAL PROTEIN 6.8 g/dL (6.3-8.2)
[2020-03-07 13:30] LABS: ANION GAP 4 (5-19)
--- NOTE | 2020-03-07 16:42 | ER Document Report ---
ED Cardiac - General Chief Complaint: Chest Pain Stated Complaint: CHEST PAIN Time Seen by Provider: 03/07/20 12:18 Primary Care Provider: JOSEPHINE WYNNE PA-C [NO LOCAL MD] - Follow up as needed Mode of Arrival: Ambulatory Information source: Patient TRAVEL OUTSIDE OF THE [place] IN LAST 30 DAYS: No - HPI Patient complains to provider of: Chest pain Chest pain precipitating factors: Physical Exertion Notes: Patient is a 49-year-old female with a past medical history of hypertension who presents with chest pain. 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 She describes it as a sharp pain. Pain reoccurred whenever she tried to lift something yesterday. Pain does not occur when she is at rest. Patient was told by her employer to get checked out. She denies any chest pain today. She denies any shortness of breath. No pleuritic pain. No back pain. No lightheadedness or abdominal pain. She has not had a cough or a fever. Patient is a smoker. - Related Data Allergies/Adverse Reactions: No Known Allergies Allergy (Verified 09/24/19 22:49) Past Medical History - General Information source: Patient - Social History Smoking Status: Current Every Day Smoker Frequency of alcohol use: None Drug Abuse: None Family History: Reviewed & Not Pertinent, CAD, Hyperlipidemia, Hypertension, Malignancy - Past Medical History Cardiac Medical History: Reports: Hx Hypertension Renal/ Medical History: Denies: Hx Peritoneal Dialysis Past Surgical History: Reports: Hx Section, Hx Hysterectomy, Hx Tubal Ligation - Immunizations Immunizations up to date: Yes Hx Diphtheria, Pertussis, Tetanus Vaccination: Yes Review of Systems - Review of Systems Notes: CONSTITUTIONAL: No fever, fatigue or weight loss. SKIN: No rash. HENT: No congestion, ear pain, or sore throat. EYES: No recent vision problems or eye pain. ENDOCRINE: No thyroid problems. No polyuria or polydipsia. CARDIOVASCULAR: Positive for chest pain yesterday RESPIRATORY: No cough, shortness of breath, congestion, or wheezing. GASTROINTESTINAL: No abdominal pain, nausea, vomiting, bloody stools or awilda rrhea. GENITOURINARY: No dysuria. MUSCULOSKELETAL: No joint pain or swelling. LYMPHATIC: No swollen glands. NEUROLOGIC: No seizures. No headache, focal weakness or sensory changes. HEMATOLOGIC: No unusual bruising or bleeding. PSYCHIATRIC: No depression or anxiety. Physical Exam - Vital signs Vitals: Temp Pulse Resp BP Pulse Ox 98.6 F 67 16 136/76 H 99 03/07/20 11:41 03/07/20 11:41 03/07/20 11:41 03/07/20 11:41 03/07/20 11:41 Interpretation: Normal Notes: VITAL SIGNS: Within normal limits. GENERAL: No acute distress, non-toxic appearance. HEAD: Normal with no signs of head trauma. EYES: EOMI, conjunctiva normal, no discharge. EARS: Hearing grossly intact. NOSE: Normal. NECK: Normal range of motion, no tenderness, supple, no lymphadenopathy, No adenopathy, no JVD. CHEST: Clear breath sounds bilaterally. No wheezes, rales, or rhonchi. CARDIAC: Regular rate and rhythm. S1 and S2, without murmurs, gallops, or rubs. VASCULAR: No Edema. Peripheral pulses normal ABDOMEN: Normal and soft with no tenderness GENITOURINARY: Normal, No tenderness LYMPATHTIC: No lymphadenopathy noted. MUSCULOSKELETAL: Good range of motion of all major joints. Extremities without clubbing, cyanosis or edema. NEUROLOGICAL: Alert and oriented x 3. No focal sensory or strength deficits. Speech normal. Follows commands appropriately. PSYCHIATRIC: Normal Affect, judgement and mood. SKIN: Normal appearance with no rashes or lesions. Course - Re-evaluation Re-evalutation: 03/07/20 16:38 Patient appears well on exam. She is in no acute distress. Patient has not had any recurrence of chest pain. Heart score is 3. I suspect that this could be muscular as it only happens when she is lifting heavy things. I do not think this is a PE. I discussed cardiac risk factors with the patient. States that she feels fine and would like to go home as her needs the car to go to work. I did recommend that she follow-up with her family doctor who may want to do outpatient cardiac testing as she has never had this before such as an echo or a stress test. She was very agreeable to this plan. Second troponin is negative. She will be discharged home with PCP follow-up. She was given strict return precautions including return of pain, nausea, vomiting, any worsening symptoms. 03/07/20 16:47 03/07/20 17:24 - Vital Signs Vital signs: Temp Pulse Resp BP Pulse Ox 98.6 F 67 20 117/67 99 03/07/20 11:41 03/07/20 11:41 03/07/20 17:00 03/07/20 16:01 03/07/20 17:00 - Laboratory Result Diagrams: 03/07/20 12:33 03/07/20 12:33 Laboratory results interpreted by me: 03/07/20 12:33 Anion Gap 4 L Glucose 114 H - Diagnostic Test Radiology reviewed: Image reviewed, Reports reviewed - EKG Interpretation by Me EKG shows normal: Sinus rhythm Rate: Normal Rhythm: NSR When compared to previous EKG there are: Previous EKG unavailable Additional EKG results interpreted by me: 03/07/20 16:42 Sinus rhythm at a rate of 69. QTc 429. No acute ST changes. No previous EKG available for comparison. Discharge - Discharge Clinical Impression: Chest pain Qualifiers: Chest pain type: unspecified Qualified Code(s): R07.9 - Chest pain, unspecified Disposition: HOME, SELF-CARE Instructions: Chest Pain of Unclear Cause ([facility]) Additional Instructions: Please follow-up with your family doctor. Take anti-inflammatories or Tylenol for pain. Return to the ER for any return of chest pain or other symptoms. Forms: Return to Work Referrals: JOSEPHINE WYNNE PA-C [NO LOCAL MD] - Follow up as needed
[2020-03-07] MEDS ORDERED: ASPIRIN 325 MG TABLET PO ONE (16:44)
--- NOTE | 2020-03-07 16:55 | EKG REPORT ---
SEVERITY:- NORMAL ECG - SINUS RHYTHM : Confirmed by: Tanner Bassett MD 07-Mar-2020 16:55:10
[2020-03-07 17:17] VITALS: BP 117/67
== END 2020-03-07 17:18 | disposition home or self-care (01) ==
LOC: ER 10:49
DX: R07.9 Chest pain, unspecified (principal); I10 Essential (primary) hypertension; X50.9XXA Other and unspecified overexertion or strenuous movements or postures, initial encounter; Y99.0 Civilian activity done for income or pay; F17.200 Nicotine dependence, unspecified, uncomplicated
CPT/HCPCS: 36415; 71046; 80053; 83735; 84484; 85025; 93005; 93010; 99285